=== PATIENT | male | born 1960 | race Caucasian/White ===

== ENCOUNTER 2024-12-27 11:12 | Emergency (ER) | payer OTHER ==
[2024-12-27] MEDS ORDERED: Sodium Chloride 0.9% 10 ML Syringe FLUSH PRN (11:20)
[2024-12-27] MEDS: Aspirin 81 MG Tab.Chew PO ONE (11:25)
[2024-12-27] MEDS: Nitroglycerin 0.4 MG Tab.SL SL PRN (11:27)
[2024-12-27 11:32] LABS: BASOPHILS ABSOLUTE AUTO 0.05 K/uL (0.00-0.20); BASOPHILS PERCENT AUTO 0.6 % (0.0-2.0); EOSINOPHILS ABSOLUTE AUTO 0.03 K/uL (0.00-0.50); EOSINOPHILS PERCENT AUTO 0.4 % (0.0-5.0); HEMATOCRIT 32.8 % (39.0-49.0); HEMOGLOBIN 10.2 g/dL (13.1-16.8); IMMATURE GRAN ABSOLUTE AUTO 0.01 10^3/uL (0.00-0.04); IMMATURE GRAN PERCENT AUTO 0.1 % (0.0-0.4); LYMPHOCYTES ABSOLUTE AUTO 0.94 K/uL (0.50-3.50); LYMPHOCYTES PERCENT AUTO 11.7 % (10.0-50.0); MEAN CORPUSCULAR HEMOGLOBIN 24.8 pg (28.2-33.3); MEAN CORPUSCULAR HGB CONC 31.1 g/dL (31.7-36.0); MEAN CORPUSCULAR VOLUME 79.8 fL (84.0-98.0); MONOCYTES PERCENT AUTO 6.2 % (2.0-14.0); NEUTROPHILS ABSOLUTE AUTO 6.53 K/uL (1.40-7.00); PLATELET COUNT,PLT 368 K/uL (150-350); RED BLOOD CELL COUNT 4.11 M/uL (4.33-5.41); RED CELL DISTRIBUTION WIDTH 15.5 % (11.2-14.1); WHITE BLOOD CELL COUNT,WBC 8.1 K/uL (4.0-10.2)
[2024-12-27 12:05] LABS: ALBUMIN 3.5 g/dL (3.4-5.0); ANION GAP 9.2 meq/L (7-15); BILIRUBIN TOTAL 0.2 mg/dL (0.2-1.0); CALCIUM 8.5 mg/dL (8.5-10.1); CREATININE 1.47 mg/dL (0.51-1.17); EST CRCL DRUG DOSING (CG) 51.04 mL/min; MAGNESIUM 2.2 mg/dL (1.8-2.4); POTASSIUM,K 5.2 mmol/L (3.5-5.1); PROTEIN TOTAL,TP 7.3 g/dL (6.4-8.2)
[2024-12-27] MEDS: Sodium Chloride 0.9% 1,000 ML IV ONE (12:29)
[2024-12-27] MEDS: Metoprolol Succinate 25 MG Tab.ER PO ONE (16:22)
[2024-12-27 16:58] LABS: CREATININE 1.35 mg/dL (0.51-1.17); EST CRCL DRUG DOSING (CG) 55.58 mL/min; POTASSIUM,K 4.2 mmol/L (3.5-5.1)
[2024-12-27] MEDS: cloNIDine 0.1 MG Tab PO ONE (17:21)
== END 2024-12-27 17:30 | disposition home or self-care (01) ==
LOC: LL.ED 11:12
DX: R07.89 Other chest pain (principal); N28.9 Disorder of kidney and ureter, unspecified; I10 Essential (primary) hypertension; F17.210 Nicotine dependence, cigarettes, uncomplicated
CPT/HCPCS: 36415; 71045; 80053; 82565; 83605; 83735; 84132; 84484; 85025; 85379; 93005; 96360; 96361; 99285-25; A9270-GY; J7030